=== PATIENT | female | born 1975 | race Caucasian/White ===

== ENCOUNTER 2017-08-18 22:10 | Inpatient (IN) | payer OTHER ==
[2017-08-19] MEDS ORDERED: Terbutaline 1 MG/ML SDV SUBCUT PRN (07:13)
[2017-08-19] MEDS ORDERED: Misoprostol 25 MCG (1/4 of 100 MCG) Tab VAG PRN (07:13)
[2017-08-19] MEDS ORDERED: Sodium Chloride 0.9% 10 ML Syringe FLUSH PRN (07:15)
[2017-08-19] MEDS ORDERED: Water For Irrigation,Sterile 1,000 ML Container IRR PRN (07:15)
[2017-08-19] MEDS ORDERED: Tranexamic Acid 1,000 MG in Sodium Chloride 0.9% 100 ML IV PRN (07:15)
[2017-08-19] MEDS ORDERED: Butorphanol 1 MG/ML SDV IVPUSH PRN (07:15)
[2017-08-19] MEDS ORDERED: Oxytocin/0.9 % Sodium Chloride 30 UNIT/500 ML BAG IV SCH (07:15)
[2017-08-19] MEDS ORDERED: Sodium Chloride 0.9% 2.5 ML Syringe FLUSH PRN (07:15)
[2017-08-19] MEDS ORDERED: Misoprostol 25 MCG (1/4 of 100 MCG) Tab VAG SCH (07:15)
[2017-08-19] MEDS ORDERED: Carboprost Tromethamine 250 MCG/1 ML Amp IM PRN (07:15)
[2017-08-19] MEDS ORDERED: Methylergonovine 0.2 MG/1 ML Amp IM PRN (07:15)
[2017-08-19] MEDS ORDERED: Lidocaine 1% 50 ML MDV INJECT PRN (07:15)
[2017-08-19] MEDS ORDERED: Misoprostol 200 MCG Tab PO PRN (07:15)
[2017-08-19] MEDS ORDERED: Nalbuphine 10 MG/ML 10 ML MDV IVPUSH PRN (07:15)
[2017-08-19] MEDS: Lactated Ringers 1,000 ML IV SCH ×2 (08:36→16:49)
[2017-08-19] MEDS ORDERED: valACYclovir 500 MG Tab PO SCH (09:00)
--- NOTE | 2017-08-19 14:13 | US ---
EXAM DATE: 08/19/17 PATIENT'S AGE: 42 Patient: DALTON FRANCO Facility: [place], [place] Site . Site : [id number] Study: US OB Pelvis [id number] 12:44:45 AM Ordering Physician: Elan Escoto Final Report: HISTORY: Decreased movement. FINDINGS: Limited OB ultrasound and biophysical profile demonstrates a single intrauterine fetus in cephalic presentation. Cardiac rate is 135 beats per minute. The placenta is fundal and mature. Amniotic fluid index is 14.9 cm. Biophysical profile: 0/2 for breathing, 2/2 for movement, 2/2 for tone 2/2 for amniotic fluid. Total is 6/8. IMPRESSION: 1. Single viable intrauterine fetus in cephalic presentation. 2. Amniotic fluid index is 14.9 cm. 3. Fundal mature placenta. 4. Biophysical profile 6/8. Dictated by Tiana Umana MD @ 08/19/2017 12:50:13 AM Dictated by: Tiana Umana MD @ 08/19/2017 00:50:23 (Electronic Signature) Report Signed by Proxy. SOFIYA
[2017-08-19] MEDS ORDERED: Lanolin 100% Cream 7 GM Tube TOP PRN (20:39)
[2017-08-19] MEDS ORDERED: Bisacodyl 10 MG Supp RECTAL PRN (20:39)
[2017-08-19] MEDS ORDERED: Acetaminophen 500 MG Tab PO PRN ×2 (20:39)
[2017-08-19] MEDS ORDERED: Benzocaine/Menthol 20%-0.5% Spray 78 GM Cannister TOP PRN (20:39)
[2017-08-19] MEDS ORDERED: Ibuprofen 800 MG Tab PO PRN (20:39)
[2017-08-19] MEDS ORDERED: Docusate Sodium 100 MG Cap PO PRN (20:39)
[2017-08-19] MEDS ORDERED: Ibuprofen 400 MG Tab PO PRN (20:39)
[2017-08-19] MEDS ORDERED: Witch Hazel Medicated Pads 40/Jar TOP PRN (20:39)
--- NOTE | 2017-08-19 21:47 | OR ---
SURGEON: Catia Wesley MD DATE OF PROCEDURE: 08/19/2017 PREOPERATIVE DIAGNOSES: 1. Intrauterine at 39 weeks and 3 days. 2. Induction of labor for decreased movement. 3. Advanced maternal age. POSTOPERATIVE DIAGNOSES: 1. Intrauterine at 39 weeks and 3 days. 2. Induction of labor for decreased movement. 3. Advanced maternal age. 4. Delivered. PROCEDURES: 1. Induction of labor. 2. Spontaneous vaginal delivery. ANESTHESIA: None. ESTIMATED BLOOD LOSS: 100 mL. COMPLICATIONS: None. DISPOSITION: Stable in Labor and Delivery room, bonding with the baby. FINDINGS: Male infant, weight 2890 g, scores of 9 and 9 at 1 and 5 minutes respectively. Grossly normal placenta with 3-vessel cord. Intact perineum. BRIEF HISTORY: The patient is a 42-year-old G5, P2-0-2-2, who presented last night at 39 weeks and 2 days' gestation with a history of decreased movement. She was evaluated and had a reactive NST. Biophysical was 6/8, -2 for breathing. The patient continued to complain of decreased movement, and a decision to proceed with induction of labor was made, especially since the patient lived approximately 100 miles away from the hospital. Her care was otherwise complicated by advanced maternal age, genital herpes, on suppressive therapy with Valtrex, no recent outbreaks and no lesions noted on admission by the admitting provider. GBS status negative. She was 2cm dilated, 70% effaced at station -2 and Induction of labor was commenced with oxytocin at the early hours of this morning. Artificial rupture of membranes was performed at approximately 4:30pm this evening, clear amniotic fluid noted. At that time, she was 3 cm, 80% effaced. With artificial rupture of membranes, she made good progress, becoming fully dilated a little after 8:00 p.m. Maxmium dose of oxytocin wa 18 mu/min. The patient received no anesthesia and with increasing rectal pressure, she commenced active pushing. She pushed quite well and bringing the head down to a +4 station with two contractions, she was set up for delivery in modified dorsal lithotomy position. heart tracing remained reassuring. DESCRIPTION OF PROCEDURE: She had a spontaneous vaginal delivery of a live male in direct occipital anterior position, loose nuchal cord x1 which was easily reduced. Clear amniotic fluid at delivery. Anterior and posterior shoulders and the rest of the baby were delivered without difficulty. The baby was vigorous and cried spontaneously at . The baby was delivered onto the maternal abdomen with the nursery nurse in attendance and stimulating and drying him. Delayed cord clamping was performed and the cord was subsequently cut by the patient. With delivery of the , oxytocin infusion was converted to titration for active management of third stage of labor. Cord blood and gas samples were obtained. Placenta was delivered by controlled cord traction, appeared to be complete and intact. Uterine massage was performed, the uterus was found to be well contracted. Examination of the perineum revealed no lacerations. The patient tolerated the procedure well. Sponge, instrument, and needle counts were correct at the end of the delivery. ADUMVIV / MODL /[id number] MTDD
--- NOTE | 2017-08-20 07:52 | PCM.PNPP ---
<Sylvia Romo - Last Filed: 08/20/17 07:50> - General Info Date of Service: 08/20/17 Functional Status: Reports: Pain Controlled, Tolerating Diet, Ambulating, Urinating - Review of Systems General: Denies: Fever, Weakness, Fatigue Pulmonary: Denies: Shortness of Breath, Pleuritic Chest Pain, Cough Cardiovascular: Denies: Chest Pain, Palpitations, Dyspnea on Exertion Gastrointestinal: Denies: Abdominal Pain Genitourinary: Denies: Dysuria - General Info Date of Service: 08/20/17 - Patient Data Vital Signs - Most Recent: Last Vital Signs Temp 37.4 C 08/20/17 04:00 Pulse 72 08/20/17 04:00 Resp 16 08/20/17 04:00 BP 130/73 08/20/17 04:00 Pulse Ox 97 08/20/17 04:00 Weight - Most Recent: 64.41 kg Lab Results - Last 24 Hours: Laboratory Results - last 24 hr 08/19/17 08/19/17 08/19/17 Range/Units 07:55 07:55 20:22 WBC 6.86 (4.0-11.0) K/uL RBC 4.01 L (4.30-5.90) M/uL Hgb 12.5 (12.0-16.0) g/dL Hct 36.9 (36.0-46.0) % MCV 92.0 (80.0-98.0) fL MCH 31.2 (27.0-32.0) pg MCHC 33.9 (31.0-37.0) g/dL RDW Std Deviation 49.8 (28.0-62.0) fl RDW Coeff of Radha 15 (11.0-15.0) % Plt Count 221 (150-400) K/uL MPV 10.80 (7.40-12.00) fL Nucleated RBC % 0.0 /100WBC Nucleated RBCs # 0 K/uL Cord ABG pH 7.293 (7.18-7.38) Cord ABG Base Excess -10 (-10--2) Cord VBG pH 7.400 (7.25-7.45) Cord VBG Base Excess -8 (-10--2) Blood Type O POSITIVE Antibody Screen NEGATIVE 08/20/17 Range/Units 04:25 WBC (4.0-11.0) K/uL RBC (4.30-5.90) M/uL Hgb 11.6 L (12.0-16.0) g/dL Hct 34.2 L (36.0-46.0) % MCV (80.0-98.0) fL MCH (27.0-32.0) pg MCHC (31.0-37.0) g/dL RDW Std Deviation (28.0-62.0) fl RDW Coeff of Radha (11.0-15.0) % Plt Count (150-400) K/uL MPV (7.40-12.00) fL Nucleated RBC % /100WBC Nucleated RBCs # K/uL Cord ABG pH (7.18-7.38) Cord ABG Base Excess (-10--2) Cord VBG pH (7.25-7.45) Cord VBG Base Excess (-10--2) Blood Type Antibody Screen Med Orders - Current: Current Medications Acetaminophen (Tylenol Extra Strength) 500 mg PO Q4H PRN PRN Reason: Pain Acetaminophen (Tylenol Extra Strength) 1,000 mg PO Q4H PRN PRN Reason: Pain Benzocaine/Menthol (Dermoplast Pain Relief 20%-0.5% [place]) 78 gm TOP ASDIRECTED PRN PRN Reason: Perineal Comfort Measure Bisacodyl (Dulcolax) 10 mg RECTAL .ONCE PRN PRN Reason: Constipation Docusate Sodium (Colace) 100 mg PO BID PRN PRN Reason: Constipation Emollient Ointment (Lansinoh Hpa) 0 gm TOP ASDIRECTED PRN PRN Reason: Sore Nipples Last Admin: 08/19/17 21:16 Dose: 1 applic Ibuprofen (Motrin) 400 mg PO Q4H PRN PRN Reason: Pain Ibuprofen (Motrin) 800 mg PO Q6H PRN PRN Reason: Pain Last Admin: 08/19/17 21:17 Dose: 800 mg Witch Adriana (Tucks) 1 pad TOP ASDIRECTED PRN PRN Reason: comfort care Discontinued Medications Butorphanol Tartrate (Stadol) 1 mg IVPUSH Q1H PRN PRN Reason: Pain Carboprost Tromethamine (Hemabate Ds) 250 mcg IM ASDIRECTED PRN PRN Reason: Post Hemorrhage Oxytocin/Sodium Chloride (Oxytocin 30 Unit/500 Ml-Ns) 30 unit in 500 mls @ 2 mls/hr IV TITRATE PETER; Protocol Last Titration: 08/19/17 14:51 Dose: 18 munits/min, 18 mls/hr Lactated Ringer's (Ringers, Lactated) 1,000 mls @ 150 mls/hr IV ASDIRECTED PETER Last Admin: 08/19/17 16:49 Dose: 150 mls/hr Tranexamic Acid 1,000 mg/ (Sodium Chloride) 110 mls @ 660 mls/hr IV ONETIME PRN PRN Reason: Bleeding Lidocaine HCl (Xylocaine 1%) 50 ml INJECT .ONCE PRN PRN Reason: Laceration repair Methylergonovine Maleate (Methergine) 0.2 mg IM ASDIRECTED PRN PRN Reason: Post Hemorrhage Misoprostol (Cytotec) 25 mcg VAG .ONCE PETER Misoprostol (Cytotec) 25 mcg VAG Q4H PRN PRN Reason: Cervical Ripening Misoprostol (Cytotec) 200 mcg PO .ONCE PRN PRN Reason: Post Hemorrhage Nalbuphine HCl (Nubain) 10 mg IVPUSH Q1H PRN PRN Reason: Pain (severe 7-10) Sodium Chloride (Saline Flush) 10 ml FLUSH ASDIRECTED PRN PRN Reason: Keep Vein Open Sodium Chloride (Saline Flush) 2.5 ml FLUSH ASDIRECTED PRN PRN Reason: Keep Vein Open Sterile Water (Sterile Water For Irrigation) 1,000 ml IRR ASDIRECTED PRN PRN Reason: delivery Last Admin: 08/19/17 20:44 Dose: 1,000 ml Terbutaline Sulfate (Brethine) 0.25 mg SUBCUT ASDIRECTED PRN PRN Reason: Tacysystole Valacyclovir HCl (Valtrex) 500 mg PO BID PETER - Infant Interaction Disposition, : in Room with Family Interaction: Holding Infant Feeding: Breastfed ; Nursed Well Support Person: - Recovery Exam Fundal Tone: Firm Fundal Level: 1 Fingerbreadths Below Umbilicus Fundal Placement: Midline Lochia Amount: Small Lochia Color: Rubra/Red Perineum Description: Intact, Minimal Bruising/Swelling Episiotomy/Laceration: None Bladder Status: Voiding Urinary Elimination: Voided - Exam General: Alert, Oriented Neck: Supple Lungs: Clear to Auscultation, Normal Respiratory Effort Cardiovascular: Regular Rate, Regular Rhythm GI/Abdominal Exam: Normal Bowel Sounds, Soft, Non-Tender, No Distention Extremities: Normal Inspection, Normal Capillary Refill, Pedal Edema (trace) Skin: Warm, Dry, Intact Psy/Mental Status: Alert - Problem List Review Problem List Initiated/Reviewed/Updated: Yes - Assessment Assessment:: PPD#1 s/p . Minimal pain and lochia. Breast feeding well. Discharge home today. - Plan Plan:: Discharge instructions reviewed. Pelvic rest for 6 weeks. Continue PNV while breast feeding. Can use OTC ibuprofen/tylenol as needed for pain. Instructed patient to call if she develops fever greater than 101 or bleeding through a large pad an hour. F/U with [facility] in 6 weeks. <Tigist Ansari - Last Filed: 08/20/17 09:02> - Patient Data Vital Signs - Most Recent: Last Vital Signs Temp 36.6 C 08/20/17 08:00 Pulse 72 08/20/17 04:00 Resp 17 08/20/17 08:00 BP 102/58 L 08/20/17 08:00 Pulse Ox 97 08/20/17 08:00 Lab Results - Last 24 Hours: Laboratory Results - last 24 hr 08/19/17 08/20/17 Range/Units 20:22 04:25 Hgb 11.6 L (12.0-16.0) g/dL Hct 34.2 L (36.0-46.0) % Cord ABG pH 7.293 (7.18-7.38) Cord ABG Base Excess -10 (-10--2) Cord VBG pH 7.400 (7.25-7.45) Cord VBG Base Excess -8 (-10--2) Med Orders - Current: Current Medications Acetaminophen (Tylenol Extra Strength) 500 mg PO Q4H PRN PRN Reason: Pain Acetaminophen (Tylenol Extra Strength) 1,000 mg PO Q4H PRN PRN Reason: Pain Benzocaine/Menthol (Dermoplast Pain Relief 20%-0.5% [place]) 78 gm TOP ASDIRECTED PRN PRN Reason: Perineal Comfort Measure Bisacodyl (Dulcolax) 10 mg RECTAL .ONCE PRN PRN Reason: Constipation Docusate Sodium (Colace) 100 mg PO BID PRN PRN Reason: Constipation Emollient Ointment (Lansinoh Hpa) 0 gm TOP ASDIRECTED PRN PRN Reason: Sore Nipples Last Admin: 08/19/17 21:16 Dose: 1 applic Ibuprofen (Motrin) 400 mg PO Q4H PRN PRN Reason: Pain Ibuprofen (Motrin) 800 mg PO Q6H PRN PRN Reason: Pain Last Admin: 08/19/17 21:17 Dose: 800 mg Witch Adriana (Tucks) 1 pad TOP ASDIRECTED PRN PRN Reason: comfort care Discontinued Medications Butorphanol Tartrate (Stadol) 1 mg IVPUSH Q1H PRN PRN Reason: Pain Carboprost Tromethamine (Hemabate Ds) 250 mcg IM ASDIRECTED PRN PRN Reason: Post Hemorrhage Oxytocin/Sodium Chloride (Oxytocin 30 Unit/500 Ml-Ns) 30 unit in 500 mls @ 2 mls/hr IV TITRATE PETER; Protocol Last Titration: 08/19/17 14:51 Dose: 18 munits/min, 18 mls/hr Lactated Ringer's (Ringers, Lactated) 1,000 mls @ 150 mls/hr IV ASDIRECTED PETER Last Admin: 08/19/17 16:49 Dose: 150 mls/hr Tranexamic Acid 1,000 mg/ (Sodium Chloride) 110 mls @ 660 mls/hr IV ONETIME PRN PRN Reason: Bleeding Lidocaine HCl (Xylocaine 1%) 50 ml INJECT .ONCE PRN PRN Reason: Laceration repair Methylergonovine Maleate (Methergine) 0.2 mg IM ASDIRECTED PRN PRN Reason: Post Hemorrhage Misoprostol (Cytotec) 25 mcg VAG .ONCE PETER Misoprostol (Cytotec) 25 mcg VAG Q4H PRN PRN Reason: Cervical Ripening Misoprostol (Cytotec) 200 mcg PO .ONCE PRN PRN Reason: Post Hemorrhage Nalbuphine HCl (Nubain) 10 mg IVPUSH Q1H PRN PRN Reason: Pain (severe 7-10) Sodium Chloride (Saline Flush) 10 ml FLUSH ASDIRECTED PRN PRN Reason: Keep Vein Open Sodium Chloride (Saline Flush) 2.5 ml FLUSH ASDIRECTED PRN PRN Reason: Keep Vein Open Sterile Water (Sterile Water For Irrigation) 1,000 ml IRR ASDIRECTED PRN PRN Reason: delivery Last Admin: 08/19/17 20:44 Dose: 1,000 ml Terbutaline Sulfate (Brethine) 0.25 mg SUBCUT ASDIRECTED PRN PRN Reason: Tacysystole Valacyclovir HCl (Valtrex) 500 mg PO BID PETER - Plan Plan:: patient seen/examined--agree with above.
[2017-08-20 19:57] VITALS: BP 109/80
== END 2017-08-20 22:20 | disposition home or self-care (01) | DRG 775 ==
LOC: MW.OBCHECK 22:10 → MW.OB 22:12 → MW.OBCHECK 08-19 07:15 → OBSVTOIN 08-19 20:20
PROVIDERS: ADMIT Obstetrics & Gynecology; ATTEND Obstetrics & Gynecology
PROC: 10E0XZZ Delivery of Products of Conception, External Approach (ICD-10-PCS; principal; 2017-08-19)
PROC: 3E033VJ Introduction of Other Hormone into Peripheral Vein, Percutaneous Approach (ICD-10-PCS; 2017-08-19)
PROC: 10907ZC Drainage of Amniotic Fluid, Therapeutic from Products of Conception, Via Natural or Artificial Opening (ICD-10-PCS; 2017-08-19)
DX: O36.8130 Decreased fetal movements, third trimester, not applicable or unspecified (principal); O09.523 Supervision of elderly multigravida, third trimester; O09.43 Supervision of pregnancy with grand multiparity, third trimester; Z3A.39 39 weeks gestation of pregnancy; Z37.0 Single live birth
CPT/HCPCS: 36415; 59025; 59409; 76819; 76819-26; 82803; 85014; 85018; 85027; 86850; 86900; 86901; A9270-GY; J2590; J7120